=== PATIENT | female | born 1965 | race Two or more races ===

== ENCOUNTER → 2017-01-06 | Outpatient (CLI) | payer BC, OTHER ==
[~2017-01-06] MED LIST: MULT-516 PO
== END | disposition home or self-care (01) ==
LOC: STAR 13:19
PROVIDERS: ATTEND Specialist
DX: D25.2 Subserosal leiomyoma of uterus (principal)
CPT/HCPCS: 36415; 84703; 85025

== ENCOUNTER 2017-01-14 05:21 | Day surgery (SDC) | payer BC, OTHER ==
[~2017-01-14] VITALS: Ht 157.5 cm; Wt 69.0 kg
[2017-01-14] MEDS ORDERED: LACTATED RINGERS 1,000 ML IV SCH (06:06)
[2017-01-14 06:36] LABS: HCG UR OBC PASS
[2017-01-14] MEDS ORDERED: MIDAZOLAM 1 MG/ML, 2ML ONE (06:44)
[2017-01-14] MEDS ORDERED: FENTANYL PF 250 MCG/5ML ONE (06:44)
[2017-01-14] MEDS ORDERED: BUPIVACAINE/PF 0.25% ONE (06:46)
[2017-01-14] MEDS ORDERED: PROMETHAZINE 25 MG/ML, 1ML IV PRN (07:30)
[2017-01-14] MEDS ORDERED: ACETAMINOPHEN 325 MG TABLET PO PRN (07:30)
[2017-01-14] MEDS ORDERED: MEPERIDINE/PF 25MG/0.5ML IVPush PRN (07:30)
[2017-01-14] MEDS ORDERED: HYDROmorphone 1 MG/ML, 1ML IV PRN (07:30)
[2017-01-14] MEDS ORDERED: METOCLOPRAMIDE 5 MG/ML, 2ML IV PRN (07:30)
[2017-01-14] MEDS ORDERED: ONDANSETRON 2MG/ML, 2ML IVPush PRN (07:30)
[2017-01-14] MEDS ORDERED: OXYcodone 5 MG/5 ML ORAL.SOL UDC PO PRN (07:30)
[2017-01-14] MEDS ORDERED: hydrALAzine 20 MG/ML, 1ML IV PRN (07:30)
[2017-01-14] MEDS ORDERED: LABETALOL 5MG/ML, 20ML IV PRN (07:30)
[2017-01-14] MEDS ORDERED: ACETAMINOPHEN 650 MG/20.3 ML UDC ONE (09:31)
[2017-01-14] MEDS ORDERED: OXYcodone 5 MG/5 ML ORAL.SOL UDC ONE (09:32)
[2017-01-14] MEDS ORDERED: FENTANYL PF 100 MCG/2ML ONE (09:57)
[2017-01-14] MEDS ORDERED: ONDANSETRON 2MG/ML, 2ML ONE ×2 (09:58→11:06)
[2017-01-14] MEDS: FENTANYL PF 100 MCG/2ML IV PRN ×2 (10:05→10:10)
[2017-01-14] MEDS ORDERED: GLYCOPYRROLATE 0.2MG/1ML ONE (11:06)
[2017-01-14] MEDS ORDERED: DEXAMETHASONE 4 MG/ML, 1ML ONE (11:06)
[2017-01-14] MEDS ORDERED: CEFAZOLIN 1,000 MG ONE (11:06)
[2017-01-14] MEDS ORDERED: NEOSTIGMINE 1 MG/ML, 10ML ONE (11:06)
[2017-01-14] MEDS ORDERED: PROPOFOL 10 MG/ML, 20ML ONE (11:06)
[2017-01-14] MEDS ORDERED: ROCURONIUM 10 MG/ML ONE (11:06)
[2017-01-14] MEDS ORDERED: OXYcodone IR 5MG TABLET PO PRN (14:00)
== END 2017-01-14 19:25 ==
LOC: OUT 05:21
PROVIDERS: ATTEND Specialist
DX: D25.9 Leiomyoma of uterus, unspecified (principal); N84.0 Polyp of corpus uteri; D64.9 Anemia, unspecified; G43.909 Migraine, unspecified, not intractable, without status migrainosus; Z98.890 Other specified postprocedural states; F17.200 Nicotine dependence, unspecified, uncomplicated
CPT/HCPCS: 52000; 58571; 81025; 88307; J0690; J1100; J2250; J2405; J2704; J2710; J3010; J3490; J7120